=== PATIENT | female | born 1980 | race Caucasian/White ===

== ENCOUNTER 2016-10-22 15:16 | Emergency (ER) | payer OTHER ==
[~2016-10-22] VITALS: Ht 165.1 cm; Wt 135.4 kg
[~2016-10-22 15:16] MED LIST: CITA20TA11 PO; IBUP-1827 PO; LEVO150T5 PO; LORA1TAB PO; OXYB5TAB10 PO; OXYC5SOL11 PO
[2016-10-22 15:20] VITALS: BP 138/96; PULSE 124; RESP 20; O2SAT 96
--- NOTE | 2016-10-22 15:34 | ED.REPORT ---
HPI-Chest Pain Under 40 Date of Service Oct 22, 2016 ED Provider: Artis Villarreal MD A 36 year old female with a medical history including GERD, anxiety, bipolar disorder, depression, and multinodular goiter s/p thyroidectomy (06/2016) on thyroid replacement presents to the ED with tachycardia (120-140) onset yesterday. The patient also report shortness of breath, lightheadedness, and intermittent chest pain described as "twinges." She denies fever, nausea, or other symptoms. The patient has had similar symptoms in the past associated with a left bundle branch block. She denies any recent long plane rides or hormone replacement therapies. The patient was started on antibiotics yesterday for a UTI and her thyroid replacement dosage is currently being optimized, with the most recent change last month. Nursing Notes Stated Complaint: SOB, HEART RATE Chief Complaint: Dysrhythmia/Cardiac Nursing Notes Reviewed: Yes Allergies: Coded Allergies: aripiprazole (Verified Adverse Reaction, Severe, DRY MOUTH, 06/27/16) ciprofloxacin HCl (Verified Adverse Reaction, Severe, GENERALIZED PAIN, ) hydromorphone (Verified Adverse Reaction, Severe, ITCHING, 06/27/16) Scheduled Atenolol (Atenolol) 25 Mg Tablet 25 MG PO DAILY Citalopram (Citalopram) 20 Mg Tablet 40 MG PO DAILY Levothyroxine (Levothyroxine) 150 Mcg Tablet 150 MCG PO DAILYAC Oxybutynin Chloride (Oxybutynin Chloride) 5 Mg Tablet 5 MG PO BID Scheduled PRN Ibuprofen (Ibuprofen) 600 Mg Tablet 600 MG PO QID PRN PRN For Pain Lorazepam (Lorazepam) 1 Mg Tablet 1 MG PO BID PRN PRN For Anxiety or Agitation oxyCODONE (oxyCODONE) 5 Mg/5 Ml Solution 5-10 MG PO Q4H PRN PRN For Severe Pain General Time Seen by MD: 15:31 Chief Complaint Other (Tachycardia) Hx Obtained From: Patient Arrived By: Walk-in Onset Occurred: Yesterday Symptom Duration: Since onset Location: : Chest left: Chest right Quality: Painful Severity: Current: Moderate (Intermittent) Severity: Maximum: Moderate Associated with: Reports: Shortness of breath, Denies: Fever, Nausea Pertinent Negative: Relieved by nothing Context Related History: Reports: Anxiety disorder, GERD Recent Healthcare: No recent doctor visit Similar Sx Previous: Yes Past Medical History Past Medical History Notes: PCP: Ascencion Mcnamara Past Medical History Cholelithiasis TMJ treated with braces GERD Nephrolithiasis Frequent UTIs Multinodular goiter Anxiety Bipolar disorder type 2 Depression On thyroid replacement Past Surgical History Bone spur removal in shoulder Total thyroidectomy Reports: , Cholecystectomy Reports: Tubal ligation Family History Reports: Coronary artery disease Smoking History Current Every Day Smoker Social History Alcohol Use: Denies alcohol use Other Social History: Good social support, , Lives with children, Local resident Ambulatory Status Independent Review of Systems Review of Systems Note: + Tachycardia (120-140) Her last normal menstrual period was three weeks ago. Constitutional: Denies: Fever Respiratory: Reports: Shortness of breath, Denies: Non-productive cough Cardiovascular: Reports: Chest pain (Intermittent) GI: Denies: Nausea, Vomiting Neurologic: Reports: Lightheaded Complete sys rev & neg: except as marked. Physical Exam Initial Vital Signs Vital Signs (First) Date Time Temp Pulse Resp B/P Pulse Ox O2 Delivery O2 Flow Rate FiO2 10/22/16 15:20 36.0 124 20 138/96 96 Room Air Initial VS: Reviewed Head / Eyes: Atraumatic, Normocephalic Skin: Warm, Dry Neurologic: Alert, Oriented Psychiatric: Mood/affect normal, Behavior normal, Normal thought content General/Constitutional: Awake, Alert Respiratory / Chest: Breath sounds NL, Breath sounds = bilat, No respiratory distress Cardiovascular: Regular rhythm, Heart sounds NL, No gallop, No murmurs, No rubs Heart Rate / Rhythm: Positive: Tachycardia (Borderline) Interpretation & Diagnostics URINE TEST: Negative Lab Results Interpretation Result Diagram: 10/22/16 1547 10/22/16 1547 Test 10/22/16 15:47 10/22/16 17:50 White Blood Count 9.3th/mm3 (3.8-10.1) Red Blood Count 4.44mil/mm3 (3.90-5.20) Hemoglobin 14.0g/dL (12.0-15.6) Hematocrit 40.3% (35.0-46.0) Mean Corpuscular Volume 90.8fL (81-100) Mean Corpuscular Hemoglobin 31.5pg (27.0-35.0) Mean Corpuscular Hemoglobin Concent 34.7% (32.0-37.0) Red Cell Distribution Width 12.3% (12.3-15.4) Platelet Count 305bil/L (150-400) Neutrophils (%) (Auto) 71.1% (40-74) Lymphocytes (%) (Auto) 22.2% (14-46) Monocytes (%) (Auto) 4.8% (4-12) Eosinophils (%) (Auto) 1.4% (0-5) Basophils (%) (Auto) 0.3% (0-3) D-Dimer 0.6mg/L (<0.50) Sodium Level 139mEq/L (134-144) Potassium Level 3.8mEq/L (3.5-5.2) Chloride Level 103mEq/L (97-108) Carbon Dioxide Level 19mmol/L (18-29) Blood Urea Nitrogen 11mg/dL (6-20) Creatinine 0.85mg/dL (0.57-1.00) Estimat Glomerular Filtration Rate 108mL/min (>59) Glucose Level 112mg/dL (60-99) Calcium Level 8.6mg/dL (8.5-10.1) Magnesium Level 1.9mg/dL (1.6-2.6) Total Bilirubin 0.3mg/dL (0.0-1.2) Aspartate Amino Transf (AST/SGOT) 12U/L (0-50) Alanine Aminotransferase (ALT/SGPT) 10U/L (0-32) Alkaline Phosphatase 76U/L (25-150) Troponin T < 0.010ug/L (0.0-0.011) Pro-B-Type Natriuretic Peptide 53.56pg/mL (0-130) Total Protein 7.0g/dL (6.4-8.4) Albumin 4.4g/dL (3.4-5.0) Thyroid Stimulating Hormone (TSH) 12.830uIU/mL (0.450-4.500) Hold Flowers Top Tube Received (Received) Hold Urine Received (Received) ECG Interpretation ECG Interpretation: Sinus tachycardia rate 112 LBBB No change from 06/05/2016 with the exception of rate Time: 15:37 Interpreted by: ED physician X-Ray Chest Interpretation Chest Xray Interpretation: IMPRESSION: No acute cardiopulmonary disease. Dictated by: Ryan Bonilla M.D. on 10/22/2016 at 16:38 View: Portable, 1 view Interpretation / Wet Read by: Interpret - Radiologist Re-Eval/Medical Decision Med Decision/Clinical Course Patient here with complaint of palpitations and rapid heart rate. Does have some chest pain accompanying that. He did not present all day. Initial troponin is negative, she has an underlying left bundle branch block which is unchanged. She is known to have some mild sinus tachycardia presumably because of her palpitations. No no fever, does not appear to be acutely infected. Her d-dimer of 0.6 is completely unimpressive, has had similar symptoms and a negative CT angiogram in the recent past will not repeat that. Tachycardia resolved spontaneously prior to discharge. The patient is interested in a medication to slow her heart rate. We will try atenolol. Source of Hx: Old records Re-Evaluation/Progress : Time of Eval: 18:32 Patient Status: Condition improved Re-Evaluation/Progress Note: Discussed with patient x-ray and lab results, diagnosis, and plan for discharge. Follow-up and return to the ER instructions given. Patient agrees with plan for care and all questions were addressed. Counseled Regarding: Diagnosis, Lab results, Need for follow-up, When/why to return to ED Discharge & Departure Primary Impression: Sinus tachycardia Disposition: Home Discharge Condition All VS Reviewed: Yes Condition: Improved Patient Instructions: Palpitations (ED) Additional Instructions: Ed evaluation today included interview, exam and labs, ECG and chest x-ray as well as review of prior records. No serious cause for rapid heart rate is found. We will start atenolol 25mg daily to help slow heart rate. Be careful going from lying to standing while taking this medication. Stop if it makes you feel faint or if your heart rate is less than 50. Return to ED for chest pain or fainting. Follow up with primary care edgard. continue other home medications. Referrals: Ascencion Mcnamara MD (PCP) Scribe Attestation Portions of this note were transcribed by Angela Beth. I, Dr. Villarreal, personally performed the history, physical exam, and medical decision-making; I reviewed and confirmed the accuracy of the information in the transcribed note. Signed by: Caden Giordano, 10/22/2016, 20:15 copies to: Ascencion Mcnamara MD, Donald L MD Oct 22, 2016 15:34 ANGELA BETH Oct 22, 2016 15:38
[2016-10-22 15:55] VITALS: BP 123/79; PULSE 94; RESP 12; O2SAT 98
[2016-10-22 15:59] LABS: BASOPHILS % (AUTO) 0.3 % (0-3); EOSINOPHILS % (AUTO) 1.4 % (0-5); MONOCYTES % (AUTO) 4.8 % (4-12); Mean Corpuscular Hemoglobin 31.5 pg (27.0-35.0); Mean Corpuscular Volume 90.8 fL (81-100); NEUTROPHILS % (AUTO) 71.1 % (40-74); Platelet Count 305 bil/L (150-400)
[2016-10-22 16:40] LABS: TROPONIN T < 0.010 ug/L (0.0-0.011)
--- NOTE | 2016-10-22 16:40 | DRSVH ---
PROCEDURE: X-RAY CHEST ONE VIEW, PORTABLE ([id number]) INDICATIONS: dyspnea and tachycardia TECHNIQUE: One view of the chest was acquired. COMPARISON: [facility], CR, XR CHEST 1VW (PORTABLE), 06/03/2016, 13:50. FINDINGS: Surgical changes and devices: None. Lungs and pleura: No pleural effusions or pneumothorax. Lungs are clear. Mediastinum: Mediastinal contours appear normal. Heart size is normal. Bones and chest wall: No suspicious bony lesions. Overlying soft tissues appear unremarkable. IMPRESSION: No acute cardiopulmonary disease. Dictated by: Ryan Bonilla M.D. on 10/22/2016 at 16:38 Approved by: Ryan Bonilla M.D. on 10/22/2016 at 16:38
[2016-10-22 16:49] VITALS: BP 126/91; PULSE 108; RESP 17; O2SAT 98
[2016-10-22 16:52] LABS: Magnesium 1.9 mg/dL (1.6-2.6)
[2016-10-22 17:56] VITALS: BP 115/89; PULSE 88; RESP 15; O2SAT 99
[2016-10-22] MEDS ORDERED: ATEN25TA PO (18:49)
[2016-10-22 19:11] VITALS: BP 107/76; PULSE 85; RESP 20; O2SAT 98
== END 2016-10-22 19:12 | disposition home or self-care (01) ==
LOC: SED 15:16
DX: R00.0 Tachycardia, unspecified (principal); R06.02 Shortness of breath; R42 Dizziness and giddiness; R07.89 Other chest pain; I44.7 Left bundle-branch block, unspecified; K21.9 Gastro-esophageal reflux disease without esophagitis; F41.9 Anxiety disorder, unspecified; F31.9 Bipolar disorder, unspecified; F17.200 Nicotine dependence, unspecified, uncomplicated; Z86.39 Personal history of other endocrine, nutritional and metabolic disease; Z90.89 Acquired absence of other organs; Z87.440 Personal history of urinary (tract) infections; Z79.890 Hormone replacement therapy; Z88.8 Allergy status to other drugs, medicaments and biological substances; Z88.1 Allergy status to other antibiotic agents; Z88.5 Allergy status to narcotic agent

== ENCOUNTER 2016-11-18 12:29 | Emergency (ER) | payer OTHER ==
[~2016-11-18] VITALS: Ht 165.1 cm; Wt 132.7 kg
[~2016-11-18 12:29] MED LIST changes: +ATEN25TA PO
[2016-11-18 12:32] VITALS: BP 158/96; PULSE 64; RESP 15; O2SAT 97
--- NOTE | 2016-11-18 13:01 | ED.REPORT ---
HPI-General Illness Date of Service Nov 18, 2016 ED Provider: Lior Herrera MD 36 year old female with a history of anxiety, GERD, and thyroidectomy presents to the ER accompanied by her mother complaining of three days of constant palpitations. She states that it feels as though her "heart is going to beat out of her throat". Associated symptoms include SOB, chronic fatigue since thyroid removal in June 2016, left shoulder/arm pain and "heaviness", ear ringing, and sore throat. Patient denies chest pain, lower extremity swelling, hemoptysis, headache, and any recent surgeries or immobilization. Nursing Notes Stated Complaint: HEAVINESS IN ARM/RAPID HEART RATE Chief Complaint: General Complaint Nursing Notes Reviewed: Yes Allergies: Coded Allergies: aripiprazole (Verified Adverse Reaction, Severe, DRY MOUTH, 11/18/16) ciprofloxacin HCl (Verified Adverse Reaction, Severe, GENERALIZED PAIN, ) hydromorphone (Verified Adverse Reaction, Severe, ITCHING, 11/18/16) Scheduled Atenolol (Atenolol) 25 Mg Tablet 25 MG PO DAILY Citalopram (Citalopram) 20 Mg Tablet 40 MG PO DAILY Levothyroxine (Levothyroxine) 150 Mcg Tablet 150 MCG PO DAILYAC Oxybutynin Chloride (Oxybutynin Chloride) 5 Mg Tablet 5 MG PO BID Scheduled PRN Ibuprofen (Ibuprofen) 600 Mg Tablet 600 MG PO QID PRN PRN For Pain Lorazepam (Lorazepam) 1 Mg Tablet 1 MG PO BID PRN PRN For Anxiety or Agitation oxyCODONE (oxyCODONE) 5 Mg/5 Ml Solution 5-10 MG PO Q4H PRN PRN For Severe Pain General Time Seen by MD: 13:00 Chief Complaint Other (Palpitations) Hx Obtained From: Patient Arrived By: Walk-in Sudden in Onset?: No Onset Occurred: 3 days ago Symptom Duration: Since onset Associated with: Reports: Shortness of breath, Denies: Chest pain, Headache Similar Sx Previous: No Past Medical History Past Medical History Notes: PCP: Ascencion Mcnamara Past Medical History Cholelithiasis TMJ treated with braces GERD Nephrolithiasis Frequent UTIs Multinodular goiter Anxiety Bipolar disorder type 2 Depression On thyroid replacement Past Surgical History Bone spur removal in shoulder Total thyroidectomy Reports: , Cholecystectomy Reports: Tubal ligation Family History Reports: Coronary artery disease Smoking History Current Every Day Smoker Social History Alcohol Use: Denies alcohol use Other Social History: Good social support, , Lives with children, Local resident Ambulatory Status Independent Review of Systems Full Review of Systems Ears / Nose / Throat: Reports: Ear ringing bilateral, Sore throat Respiratory: Reports: Shortness of breath, Denies: Hemoptysis, Non-productive cough Cardiovascular: Reports: Palpitations, Denies: Chest pain GI: Denies: Vomiting Musculoskeletal: Reports: Extremity pain (Left Arm), Joint pain (Left Shoulder) , Denies: Extremity swelling, Neck pain Neurologic: Reports: Focal weakness (Left Arm "Heaviness"), Denies: Headache Complete sys rev & neg: except as marked. Physical Exam Vital Signs Vital Signs Date Time Temp Pulse Resp B/P Pulse Ox O2 Delivery O2 Flow Rate FiO2 11/18/16 16:58 59 16 145/74 99 Room Air 11/18/16 15:10 48 13 155/74 100 Room Air 11/18/16 12:32 36.8 64 15 158/96 97 Initial VS: Reviewed Head / Eyes: Atraumatic, Normocephalic Neck: Supple, Non-tender, Full range of motion Abdomen / GI: Soft, Non-tender, No guarding, No rebound, No distention Extremities: Vascular intact, Neuro intact, No swelling, No tenderness Skin: Warm, Dry, No cyanosis Neurologic: Alert, Oriented, Nonfocal Psychiatric: Mood/affect normal, Behavior normal, Normal thought content Respiratory / Chest: Breath sounds NL, No respiratory distress, No rales, No rhonchi, No wheezing Cardiovascular: Heart rate NL, Regular rhythm, Heart sounds NL, Cap refill not delayed, Peripheral circulation NL No lower extremity edema. Neurologic: Oriented X3, Speech NL, No motor deficits, No sensory deficits, CN II - XII intact Interpretation & Diagnostics Lab Results Interpretation Result Diagram: 11/18/16 1317 11/18/16 1317 Test 11/18/16 13:17 11/18/16 15:41 White Blood Count 5.4th/mm3 (3.8-10.1) Red Blood Count 4.32mil/mm3 (3.90-5.20) Hemoglobin 13.6g/dL (12.0-15.6) Hematocrit 39.9% (35.0-46.0) Mean Corpuscular Volume 92.4fL (81-100) Mean Corpuscular Hemoglobin 31.5pg (27.0-35.0) Mean Corpuscular Hemoglobin Concent 34.1% (32.0-37.0) Red Cell Distribution Width 12.1% (12.3-15.4) Platelet Count 246bil/L (150-400) Neutrophils (%) (Auto) 57.6% (40-74) Lymphocytes (%) (Auto) 32.3% (14-46) Monocytes (%) (Auto) 7.1% (4-12) Eosinophils (%) (Auto) 2.2% (0-5) Basophils (%) (Auto) 0.6% (0-3) Sodium Level 139mEq/L (134-144) Potassium Level 3.9mEq/L (3.5-5.2) Chloride Level 103mEq/L (97-108) Carbon Dioxide Level 21mmol/L (18-29) Blood Urea Nitrogen 8mg/dL (6-20) Creatinine 0.78mg/dL (0.57-1.00) Estimat Glomerular Filtration Rate 119mL/min (>59) Glucose Level 90mg/dL (60-99) Calcium Level 9.2mg/dL (8.5-10.1) Magnesium Level 1.9mg/dL (1.6-2.6) Total Bilirubin 0.5mg/dL (0.0-1.2) Aspartate Amino Transf (AST/SGOT) 15U/L (0-50) Alanine Aminotransferase (ALT/SGPT) 19U/L (0-32) Alkaline Phosphatase 62U/L (25-150) Troponin T < 0.010ug/L (0.0-0.011) Total Protein 6.8g/dL (6.4-8.4) Albumin 4.3g/dL (3.4-5.0) Thyroid Stimulating Hormone (TSH) 1.790uIU/mL (0.450-4.500) Hold Flowers Top Tube Received (Received) Hold Urine Received (Received) ECG Interpretation ECG Interpretation: Sinus rhythm, rate 62 LBBB unchanged from prior MO 166 QTc 486 Time: 13:13 Interpreted by: ED physician X-Ray Chest Interpretation Chest Xray Interpretation: IMPRESSION: 1. No acute cardiopulmonary disease. Dictated by: Arnoldo Regan M.D. on 11/18/2016 at 13:43 Approved by: Arnoldo Regan M.D. on 11/18/2016 at 13:44 View: Portable, 1 view Interpretation / Wet Read by: Interpret - Radiologist Re-Eval/Medical Decision Med Decision/Clinical Course 36-year-old female history of thyroidectomy presenting complaining of palpitations for several days. She was started on atenolol for sinus tachycardia 1 month ago. Denies any chest pain or shortness of breath. EKG shows sinus bradycardia with normal MO prolonged QTC. Consulted cardiology Dr. Murguia who recommended and agreed with plan to discontinue the atenolol and plan to follow up with cardiology as scheduled next week for possible Holter monitor. Patient stable for discharge home with return precautions. Source of Hx: Old records Time of Eval: 15:08 Re-Evaluation/Progress Note: is now present at bedside. Discussed lab and imaging results and plan to discharge. Patient is amenable to the plan. Return precautions given. All other questions addressed. Time of Eval: 16:04 Re-Evaluation/Progress Note: Dr. Murguia, Cardiology, is now present and evaluating the patient. Recommends stopping Atenolol and follow-up with Dr. Craft, Cardiology, as planned. Consultation : Referral / Consult Name: Daniela Murguia MD Consulted With: Cardiology Call Returned at: 15:15 Hand Mounter: Will see patient Counseled Regarding: Diagnosis, Lab results, Need for follow-up, When/why to return to ED Discharge & Departure Primary Impression: Heart palpitations Disposition: Home Discharge Condition All VS Reviewed: Yes Condition: Stable Patient Instructions: Chest Pain (DC), Palpitations (DC) Additional Instructions: Your workup today was reassuring. I do not believe that there is any dangerous cause for your symptoms at this time. Stop taking your Atenolol. Go to your appointment with Dr. Craft, Cardiology, as planned. You will have a Holter monitor scheduled for you. Return to the ER if you develop worsening symptoms, chest pain, shortness of breath, radiation of pain to your neck/shoulders/arms, nausea, vomiting, profuse sweating, lower extremity pain/swelling, fever, chills, or any other concerning symptoms. Referrals: Ascencion Mcnamara MD (PCP) Scribe Attestation Portions of this note were transcribed by Uriel Reyna. I, Dr. Herrera, personally performed the history, physical exam and medical decision-making; I reviewed and confirmed the accuracy of the information in the transcribed note. Signed by: Caden Cool, 11/18/2016 at 16:16 copies to: Ascencion Mcnamara MD Risk Factors PERC Rule PERC Result: All PERC criteria "No" Lior Herrera MD Nov 18, 2016 13:01 URIEL REYNA Nov 18, 2016 13:12
[2016-11-18 13:36] LABS: BASOPHILS % (AUTO) 0.6 % (0-3); EOSINOPHILS % (AUTO) 2.2 % (0-5); MONOCYTES % (AUTO) 7.1 % (4-12); Mean Corpuscular Hemoglobin 31.5 pg (27.0-35.0); Mean Corpuscular Volume 92.4 fL (81-100); NEUTROPHILS % (AUTO) 57.6 % (40-74); Platelet Count 246 bil/L (150-400)
--- NOTE | 2016-11-18 13:46 | DRSVH ---
PROCEDURE: X-RAY CHEST ONE VIEW, PORTABLE ([id number]) INDICATIONS: chest pain TECHNIQUE: One view of the chest was acquired. COMPARISON: [facility], CR, XR CHEST 1VW (PORTABLE), 10/22/2016, 16:22. FINDINGS: Surgical changes and devices: A few surgical clips are redemonstrated at the level of the thoracic in let. Lungs and pleura: No pleural effusions or pneumothorax. Lungs are clear. Mediastinum: Mediastinal contours appear normal. Heart size is normal. Bones and chest wall: No suspicious bony lesions. Overlying soft tissues appear unremarkable. IMPRESSION: 1. No acute cardiopulmonary disease. Dictated by: Arnoldo Regan M.D. on 11/18/2016 at 13:43 Approved by: Arnoldo Regan M.D. on 11/18/2016 at 13:44
[2016-11-18 14:10] LABS: TROPONIN T < 0.010 ug/L (0.0-0.011)
[2016-11-18 14:19] LABS: Magnesium 1.9 mg/dL (1.6-2.6)
[2016-11-18 15:10] VITALS: BP 155/74; PULSE 48; RESP 13; O2SAT 100
[2016-11-18 16:58] VITALS: BP 145/74; PULSE 59; RESP 16; O2SAT 99
== END 2016-11-18 16:10 | disposition home or self-care (01) ==
LOC: SED 12:29
DX: R00.2 Palpitations (principal); R06.02 Shortness of breath; K21.9 Gastro-esophageal reflux disease without esophagitis; F17.200 Nicotine dependence, unspecified, uncomplicated; Z88.1 Allergy status to other antibiotic agents; Z88.5 Allergy status to narcotic agent; Z88.8 Allergy status to other drugs, medicaments and biological substances

== ENCOUNTER 2016-12-02 21:44 | Emergency (ER) | payer OTHER ==
[~2016-12-02] VITALS: Ht 165.1 cm; Wt 132.7 kg
[2016-12-02 21:49] VITALS: BP 146/94; PULSE 91; RESP 18; O2SAT 97
--- NOTE | 2016-12-03 01:01 | ED.REPORT ---
HPI-Extremity Problem Lower Date of Service December 03, 2016 ED Provider: Taurus Fang MD A 36 year old female with a medical history including left bundle branch block, bipolar disorder, and depression on thyroid replacement presents to the ED with a right ankle injury onset today. The patient fell with her foot caught between furniture parts and then her foot was subsequently stepped on while putting a bed together. She now reports ankle pain and swelling. The patient denies additional injury/trauma or other symptoms. Nursing Notes Stated Complaint: HURT ANKLE Chief Complaint: Extremity Trauma Nursing Notes Reviewed: Yes Allergies: Coded Allergies: aripiprazole (Verified Adverse Reaction, Severe, DRY MOUTH, 11/18/16) ciprofloxacin HCl (Verified Adverse Reaction, Severe, GENERALIZED PAIN, ) hydromorphone (Verified Adverse Reaction, Severe, ITCHING, 11/18/16) Scheduled Atenolol (Atenolol) 25 Mg Tablet 25 MG PO DAILY Citalopram (Citalopram) 20 Mg Tablet 40 MG PO DAILY Levothyroxine (Levothyroxine) 150 Mcg Tablet 150 MCG PO DAILYAC Oxybutynin Chloride (Oxybutynin Chloride) 5 Mg Tablet 5 MG PO BID Scheduled PRN Ibuprofen (Ibuprofen) 600 Mg Tablet 600 MG PO QID PRN PRN For Pain Lorazepam (Lorazepam) 1 Mg Tablet 1 MG PO BID PRN PRN For Anxiety or Agitation oxyCODONE (oxyCODONE) 5 Mg/5 Ml Solution 5-10 MG PO Q4H PRN PRN For Severe Pain General Time Seen by MD: 00:59 Chief Complaint Ankle injury right Hx Obtained From: Patient Arrived By: Walk-in Onset Occurred: 5 - 8 hours ago Symptom Duration: Since onset Location: : Ankle right Quality: Painful Severity: Current: Moderate Severity: Maximum: Moderate Pertinent Negative: Relieved by nothing Immunizations: Tetanus up to date Recent Healthcare: No recent doctor visit Past Medical History Past Medical History Notes: PCP: Ascencion Mcnamara Past Medical History Cholelithiasis TMJ treated with braces GERD Nephrolithiasis Frequent UTIs Multinodular goiter Anxiety Bipolar disorder type 2 Depression On thyroid replacement Left bundle branch block Past Surgical History Bone spur removal in shoulder Total thyroidectomy Reports: , Cholecystectomy Reports: Tubal ligation Family History Reports: Coronary artery disease Smoking History Current Every Day Smoker Social History Alcohol Use: Denies alcohol use Other Social History: Good social support, , Lives with children, Local resident Ambulatory Status Independent Review of Systems Constitutional: Denies: Fever Musculoskeletal: Reports: Joint pain (Right ankle), Joint swelling (Right ankle ) Complete sys rev & neg: except as marked. Respiratory: Denies: Non-productive cough, Shortness of breath GI: Denies: Diarrhea, Vomiting Physical Exam Physical Exam Notes: Initial Vital Signs Vital Signs (First) Date Time Temp Pulse Resp B/P Pulse Ox O2 Delivery O2 Flow Rate FiO2 12/02/16 21:49 36.0 91 18 146/94 97 Room Air Initial VS: Reviewed, Vital signs abnormal Head / Eyes: Atraumatic, Normocephalic ENT: Conjunctiva normal, No scleral icterus Neck: Supple, Full range of motion Skin: Warm, Dry Neurologic: Alert, Oriented Psychiatric: Mood/affect normal, Behavior normal Ankle / Foot: Neurologic intact, Vascular intact Right Ankle: Positive: Ecchymosis present (Bilateral), Joint effusion present, Swelling present..., Tenderness present... General/Constitutional: Awake, Alert Interpretation & Diagnostics CT ANKLE - RIGHT IMPRESSION: No CT evidence of acute fracture or dislocation of the right ankle. Report transmitted to ED by radiologist Olman Robledo M.D. at 12/03/2016 - 1: 51:01 AM PDT X-Ray Interpretation Xray Interpretation: Cortical disruption anteriorly on x-ray, consistent with tenderness and bruising on physical exam Heel bone spur present Study Performed: 3 View X-Ray Ordered: Ankle right Interpretation / Wet Read by: Wet read ED physician Re-Eval/Medical Decision Med Decision/Clinical Course 36-year-old female who twisted her ankle as above. It is very tender with ecchymosis surrounding all sides. She is unable to bear weight. The initial x- ray shows some degenerative changes but no definite fracture. CT scan was obtained which also showed no fractures. She was fitted with a walking boot and crutches. She was given a prepack of pain medication. Risk of medication discussed. She will follow up with her primary doctor for further evaluation and treatment Source of Hx: Old records Re-Evaluation/Progress : Time of Eval: 02:10 Patient Status: Condition improved Re-Evaluation/Progress Note: Discussed with patient x-ray and CT results, diagnosis, and plan for discharge. Follow-up and return to the ER instructions given. Patient agrees with plan for care and all questions were addressed. Counseled Regarding: Diagnosis, Need for follow-up, When/why to return to ED Discharge & Departure Impression: Primary Impression: Ankle sprain Encounter type: initial encounter Laterality: right Disposition: Home Discharge Condition All VS Reviewed: Yes Condition: Improved Additional Instructions: Your CT did not indicate a fracture. Wear the boot and use crutches for ambulation. Gradually begin to bear weight as the pain diminishes. Tylenol and/or ibuprofen as needed for pain. Use oxycodone/APAP 5/325, one or 2 pills 4 times a day as needed for severe pain. Follow-up with your regular doctor in 3-5 days. Return to the ER with any new or worsening symptoms. Referrals: Ascencion Mcnamara MD (PCP) Scribe Attestation Portions of this note were transcribed by Angela Beth. I, Dr. Fang, personally performed the history, physical exam, and medical decision-making; I reviewed and confirmed the accuracy of the information in the transcribed note. Signed by: Caden Giordano, 12/03/2016, 04:15 copies to: Ascencion Mcnamara MD, Howard L MD December 03, 2016 01:01 ANGELA BETH December 03, 2016 01:12
[2016-12-03] MEDS ORDERED: oxyCODONE-Acetamin 5-325 mg Tablet PO ONE (01:10)
[2016-12-03] MEDS ORDERED: _oxyCODONE/APAP 5-325 mg Tablet PO PRN (02:10)
[2016-12-03 02:56] VITALS: BP 136/64; PULSE 84; RESP 16; O2SAT 98
--- NOTE | 2016-12-03 08:18 | DRSVH ---
PROCEDURE: X-RAY RIGHT ANKLE, MINIMUM THREE VIEWS ([id number]) INDICATIONS: FALL TECHNIQUE: 4 views of the ankle were acquired. COMPARISON: [facility], , ANKLE MIN 3VW (RT), 09/18/2014, 15:40. FINDINGS: Bones: No fractures or dislocations. Ankle mortise is normally aligned. No suspicious bony lesions . Plantar and posterior calcaneal spurring. Tibiotalar degenerative spurring Soft tissues: No tibiotalar joint effusion. Achilles tendon appears normal. Medial soft tissue swel ling IMPRESSION: No fracture. Posterior and plantar calcaneal spurring Medial soft tissue swelling Dictated by: López Sheppard M.D. on 12/03/2016 at 8:06 Approved by: López Sheppard M.D. on 12/03/2016 at 8:17
--- NOTE | 2016-12-03 09:32 | DRSVH ---
PROCEDURE: CT ANKLE RIGHT W/O CONTRAST ([id number]) INDICATIONS: significant PE findings, ? fx on Xray TECHNIQUE: Noncontrast 1-1.5 mm axial sections acquired from above the tibiotalar joint to the bottom of the latisha caneus, with coronal and sagittal reformats. COMPARISON: [facility], CR, XR ANKLE 3VW RT, 12/02/2016, 22:50. FINDINGS: Image quality: Excellent. Bones: No fracture or dislocation. Ankle mortise is normally aligned. Mild anterior tibiotalar osteoa rthritic degenerative changes are noted. Small 4 mm diameter ossification is noted in the anterior ti biotalar joint. Small calcaneal bone spur is noted. Soft tissues: Medial soft tissue swelling is noted ligamentous injury cannot be excluded. No definite soft tissue fluid collections identified. IMPRESSION: 1. No fracture. No acute osseous lesion. If symptoms and/or clinical suspicion for pathology persists , further assessment with MRI may be helpful for further assessment. 2. Soft tissue swelling. Ligamentous injury cannot be excluded. Dictated by: Gwendolyn Willoughby MD, PhD on 12/03/2016 at 9:26 Approved by: Gwendolyn Willoughby MD, PhD on 12/03/2016 at 9:30
== END 2016-12-03 02:59 | disposition home or self-care (01) ==
LOC: SED 21:44
DX: S93.401A Sprain of unspecified ligament of right ankle, initial encounter (principal); X50.1XXA Overexertion from prolonged static or awkward postures, initial encounter; Y93.89 Activity, other specified; Y92.019 Unspecified place in single-family (private) house as the place of occurrence of the external cause; Y99.8 Other external cause status; K21.9 Gastro-esophageal reflux disease without esophagitis; F31.9 Bipolar disorder, unspecified; F17.200 Nicotine dependence, unspecified, uncomplicated; Z88.1 Allergy status to other antibiotic agents; Z88.5 Allergy status to narcotic agent; Z88.8 Allergy status to other drugs, medicaments and biological substances

== ENCOUNTER 2017-01-16 17:42 | Inpatient (IN) | payer OTHER ==
[~2017-01-16] VITALS: Ht 165.1 cm; Wt 132.0 kg
[2017-01-16 17:45] VITALS: BP 148/77; PULSE 108; RESP 18; O2SAT 97
--- NOTE | 2017-01-16 17:57 | ED.REPORT ---
HPI-General Illness Date of Service Jan 16, 2017 ED Provider: Roberto Peña MD A 36 year old female with a history of anxiety, depression, bipolar disorder, self-harm and suicidal ideation presents to the ED due to anxiety and suicidal ideation. The pt has been struggling with severe depression for two weeks, and feels overwhelmed by this. The pt states that she is "tired of feeling crazy" and "faking that she is happy," and is unable to "shut her brain off." She has not cut herself recently, but hit her right leg with a hammer yesterday and today as a release. She has been considering suicidal actions, but does not have a specific plan. The pt denies homicidal ideation and visual or auditory hallucinations, as well as chest pain, shortness of breath, abdominal pain or palpitations. Nursing Notes Stated Complaint: PSYCHIATRIC Chief Complaint: Psychiatric Complaint Nursing Notes Reviewed: Yes Allergies: Coded Allergies: aripiprazole (Verified Adverse Reaction, Severe, DRY MOUTH, 01/16/17) ciprofloxacin HCl (Verified Adverse Reaction, Severe, GENERALIZED PAIN, ) hydromorphone (Verified Adverse Reaction, Severe, ITCHING, 01/16/17) Scheduled Atenolol (Atenolol) 25 Mg Tablet 25 MG PO DAILY Citalopram (Citalopram) 20 Mg Tablet 40 MG PO DAILY Levothyroxine (Levothyroxine) 150 Mcg Tablet 150 MCG PO DAILYAC Metoprolol Succinate ER (Metoprolol Succinate ER) 25 Mg Tab.er.24h 25 MG PO DAILY Olanzapine (Olanzapine) 2.5 Mg Tablet 2.5 MG PO HS Oxybutynin Chloride (Oxybutynin Chloride) 5 Mg Tablet 5 MG PO BID Pantoprazole DR (Pantoprazole DR) 40 Mg Tablet.dr 40 MG PO DAILY Scheduled PRN Clonazepam (Clonazepam) 1 Mg Tablet 1 MG PO PRN PRN PRN For Anxiety Ibuprofen (Ibuprofen) 600 Mg Tablet 600 MG PO QID PRN PRN For Pain Lorazepam (Lorazepam) 1 Mg Tablet 1 MG PO BID PRN PRN For Anxiety or Agitation General Time Seen by MD: 17:56 Chief Complaint Other (Suicidal ideation) Hx Obtained From: Patient, Other family... Arrived By: Walk-in Sudden in Onset?: No Onset Occurred: More than a week ago... Symptom Duration: Since onset Recent Healthcare: No recent hospitalization, Recent doctor visit Similar Sx Previous: Yes Past Medical History Past Medical History Notes: PCP: Ascencion Mcnamara Past Medical History Cholelithiasis TMJ treated with braces GERD Nephrolithiasis Frequent UTIs Multinodular goiter Anxiety Bipolar disorder type 2 Depression Self-harm Suicidal ideation On thyroid replacement Left bundle branch block Past Surgical History Bone spur removal in shoulder Total thyroidectomy Reports: , Cholecystectomy Reports: Tubal ligation Family History Reports: Coronary artery disease Smoking History Current Every Day Smoker Social History Alcohol Use: Denies alcohol use Other Social History: Good social support, , Lives with children, Local resident Ambulatory Status Independent Review of Systems Full Review of Systems Respiratory: Denies: Non-productive cough, Shortness of breath Cardiovascular: Denies: Chest pain, Palpitations GI: Denies: Abdominal pain Musculoskeletal: Denies: Back pain, Neck pain Skin: Denies Rash Psychiatric: Reports: Anxiety, Depression, Suicidal ideation, Denies: Hallucinations, auditory, Hallucinations, visual, Homicidal ideation Complete sys rev & neg: except as marked. Physical Exam Constitutional: Well-developed, well-nourished. Not diaphoretic. Head: Normocephalic and atraumatic. Mouth/Throat: Oropharynx is clear and moist. No oropharyngeal exudate. Eyes: EOM are normal. Pupils are equal, round, and reactive to light. Neck: Supple, no tracheal deviation. Cardiovascular: Normal rate, regular rhythm. Equal and intact distal pulses throughout. Pulmonary/Chest: Effort normal and breath sounds normal. No respiratory distress. Abdominal: Soft. No distension. There is no tenderness, rebound, or guarding. Bowel sounds present. Musculoskeletal: Range of motion grossly intact, moving all extremities. No edema or tenderness appreciated. Neurological: AOx3. Grossly nonfocal exam. Strength and sensation intact and equal to bilateral upper and lower extremities. Skin: Warm and dry, no rashes or pallor appreciated. Psychiatric: Suicidal ideation without plan. No homicidal ideation. No auditory or visual hallucinations. Vital Signs Vital Signs Date Time Temp Pulse Resp B/P Pulse Ox O2 Delivery O2 Flow Rate FiO2 01/16/17 22:45 86 16 146/93 97 Room Air 01/16/17 17:45 36.2 108 18 148/77 97 Room Air Initial VS: Reviewed Interpretation & Diagnostics Lab Results Interpretation Result Diagram: [id number] Test 01/16/17 18:10 01/16/17 20:20 Hold Urine Received (Received) White Blood Count 9.4th/mm3 (3.8-10.1) Red Blood Count 4.29mil/mm3 (3.90-5.20) Hemoglobin 13.7g/dL (12.0-15.6) Hematocrit 39.3% (35.0-46.0) Mean Corpuscular Volume 91.6fL (81-100) Mean Corpuscular Hemoglobin 31.9pg (27.0-35.0) Mean Corpuscular Hemoglobin Concent 34.9% (32.0-37.0) Red Cell Distribution Width 12.5% (12.3-15.4) Platelet Count 274bil/L (150-400) Neutrophils (%) (Auto) 67.3% (40-74) Lymphocytes (%) (Auto) 24.4% (14-46) Monocytes (%) (Auto) 5.7% (4-12) Eosinophils (%) (Auto) 2.0% (0-5) Basophils (%) (Auto) 0.4% (0-3) Sodium Level 139mEq/L (134-144) Potassium Level 3.6mEq/L (3.5-5.2) Chloride Level 103mEq/L (97-108) Carbon Dioxide Level 23mmol/L (18-29) Blood Urea Nitrogen 14mg/dL (6-20) Creatinine 0.79mg/dL (0.57-1.00) Estimat Glomerular Filtration Rate 117mL/min (>59) Glucose Level 122mg/dL (60-99) Calcium Level 9.4mg/dL (8.5-10.1) Total Bilirubin 0.5mg/dL (0.0-1.2) Aspartate Amino Transf (AST/SGOT) 10U/L (0-50) Alanine Aminotransferase (ALT/SGPT) 10U/L (0-32) Alkaline Phosphatase 77U/L (25-150) Total Protein 7.0g/dL (6.4-8.4) Albumin 4.0g/dL (3.4-5.0) Thyroid Stimulating Hormone (TSH) 6.470uIU/mL (0.450-4.500) Hold Flowers Top Tube Received (Received) Re-Eval/Medical Decision Med Decision/Clinical Course 36-year-old female presenting to the ED for evaluation of suicidal ideations. Laboratory studies here do not demonstrate any findings that would fully account for her current presentation. Plan as per below for admission to psychiatry for further management and evaluation. Patient agreeable to the plan as stated, no further questions. Source of Hx: Old records Time of Eval: 17:56 Re-Evaluation/Progress Note: Pt informed of the plan for admission during the initial interview. The pt understands and agrees with the plan. All questions are addressed at this time. Consultation : Call Returned at: 22:40 Note: Spoke to elementary school social worker regarding pt's case. Plan for admission is discussed. Counseled Regarding: Diagnosis, Lab results, Need for admission Discharge & Departure Primary Impression: Suicidal ideation Disposition: ADMITTED TO HOSPITAL Discharge Condition All VS Reviewed: Yes Condition: Stable Referrals: Ascencion Mcnamara MD (PCP) Rosaibfiona Attestation Portions of this note were transcribed by Kota Cotton. I, Dr. Peña personally performed the history, physical exam and medical decision-making; I reviewed and confirmed the accuracy of the information in the transcribed note. Signed by: Caden Jones, 01/16/2017 and 2861. copies to: Ascencion Mcnamara MD Risk-Psychiatric Illness Suicide Risk Stratification Suicide Risk Factors - Adult: : Prior psych admissionNo: Substance abuse RF Statements: Risk factors reviewed Roberto Peña MD Jan 16, 2017 17:57 KOTA COTTON Jan 16, 2017 19:15
[2017-01-16 20:30] LABS: BASOPHILS % (AUTO) 0.4 % (0-3); MONOCYTES % (AUTO) 5.7 % (4-12); Mean Corpuscular Hemoglobin 31.9 pg (27.0-35.0); Mean Corpuscular Volume 91.6 fL (81-100); NEUTROPHILS % (AUTO) 67.3 % (40-74); Platelet Count 274 bil/L (150-400)
[2017-01-16 22:45] VITALS: BP 146/93; PULSE 86; RESP 16; O2SAT 97
[2017-01-17 00:13] VITALS: BP 132/71; PULSE 91; RESP 18; O2SAT 98
[2017-01-17] MEDS ORDERED: Benzocaine-Menthol Lozenge 2/Pkg PO PRN (00:40)
[2017-01-17] MEDS ORDERED: Magnesium Hydroxide 10 mL Oral Concentration PO PRN (00:40)
[2017-01-17] MEDS ORDERED: Alum-Mag Hydrox-Simeth 30 mL Suspension PO PRN (00:40)
--- NOTE | 2017-01-17 01:52 | NUR ---
00:40 Nursing admission note: 36 year old female admitted voluntarily from [facility] ER. Patient BIB by family, with increasing depression and SI. Patient reports feeling overwhelmed at home, racing thoughts and has not been able to sleep much at night. Patient has 9 year old and twins age 2 and a half. 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 Patient recently starting hitting her leg with a hammer "to stop my brain" Patient has recently been contemplating OD on pills. Patient is cooperative with admission paperwork, contracts for safety. Patient briefly oriented to unit, reports she feels very tired, and went to bed shortly after arrival. Reassured patient of safety and instructed patient to request medication for sleep if necessary. Will continue to monitor and follow plan of care. Addendum: 01/17/17 at 0605 by CLAIRE HOLLAND RN 0600 Nursing note: sleep Patient appears to be sleeping ( snoring) on subsequent safety checks during the night
--- NOTE | 2017-01-17 03:14 | NUR ---
ADMIT/NOC OBS Pt arrived from ER at 0040. Signed all paperwork and was oriented to unit. She was pleasant and went right to bed and was asleep at 145. Observed Q15 as ordered.
[2017-01-17] MEDS ORDERED: METO25TA99 PO (12:14)
[2017-01-17] MEDS ORDERED: OLAN2.5T20 PO (12:14)
[2017-01-17] MEDS ORDERED: KLO1T PO (12:14)
[2017-01-17 12:19] VITALS: BP 132/88; PULSE 63; RESP 16
[2017-01-17] MEDS: LORazepam 1 mg Tablet PO PRN (12:29)
--- NOTE | 2017-01-17 13:23 | NUR ---
Observations 0700 to 1900 Pt affect and mood was friendly, content, depressed and a little sullen. Pt speech and eye contact was good. Pt attended meals in D.R. and ate 100% of breakfast and 100% of lunch. Pt ate snack. Pt attended community meeting and set a daily goal. Pt rated her mood 4/10, with 10 being the best. Pt was social with staff and select peers. Pt has been pleasant, polite and cooperative. Pt watched a little TV with peers. Pt was out in milieu most of the shift, reading her book, talking on the phone and socializing with select peers. Pt was observed every 15 minutes throughout the shift as ordered.
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
--- NOTE | 2017-01-17 14:51 | NUR ---
NURSING DAYS 7-7 S- "I don't know if I can not stop of thinking of hurting myself. I am just waiting until visiting hours" O- Patient cooperative with care, linear thinking, requesting anxiety medication, and appropriate with staff and other patients. Patient talked to mother on phone appeared to cordial conversation. A- 1mg Ativan given for anxiety, Motrin given for headache, both medications effective. Patient reassured of safe environment, and that she was doing well in dealing with situational crisis at home. P-Continue to provide safe environment, encourage family support, visits, and help plan stress management techniques.
[2017-01-17] MEDS ORDERED: PANT40TA3 PO (15:56)
[2017-01-17] MEDS: Pantoprazole 20 mg ER24 Tablet PO SCH (20:46)
--- NOTE | 2017-01-18 05:33 | NUR ---
Nursing Noc Pt noted to be pleasant and cooperative, engaged in unit activities, linear thinking and goal oriented. Taking medications as directed and using prn appropriately. Noted to be asleep at 2300 and remained asleep throughout the shift. Safety checks Q15 minute as directed. Continuing to monitor mood, behavior and emotional state. CP
[2017-01-18] MEDS: Pantoprazole 20 mg ER24 Tablet PO SCH ×2 (07:48→21:11)
[2017-01-18] MEDS: DULoxetine 30 mg DR Capsule PO SCH (07:48)
[2017-01-18] MEDS: MeTOProlol XL 25 mg ER24 Tablet PO SCH (07:49)
[2017-01-18 09:52] VITALS: BP 119/77; PULSE 67; RESP 17
--- NOTE | 2017-01-18 15:25 | PCM.PNPSY ---
Subjective Date of Service Jan 18, 2017 Subjective I spent 30 minutes both reviewing treatment plan with our clinical team, interviewing the patient and providing supportive/educational psychotherapy. I spent more than 50% of the time counseling the patient. I reviewed the treatment plan with the patient and discussed options available including the potential risks, benefits and side effects. She talked at length today about the different conflicts that she is having in her life. We discussed different strategies to deal with these and this seemed to bring her a significant sense of peace. Rani reports a slight improvement in mood stability. Staff reports that she has been isolating but is participating well in one-to-one sessions. She slept 7 hours and denies manic or psychotic symptoms review. She continues to report a marked dysphoria and a strong urge to self-harm. The intensity of her suicidal ideation is decreasing. She denies medication side effects. She was able to identify her medications and what they were used to treat. Current Medications Current Medications Atenolol 25 mg DAILY PO Last administered on 01/17/17 08:24; Admin Dose 25 MG; Start 01/17/17 at 08:30; Stop 01/17/17 at 12:53; Status DC Atenolol 25 mg DAILY PO Last administered on 01/18/17 07:49; Admin Dose 25 MG; Start 01/18/17 at 08:30 Citalopram Hydrobromide 40 mg DAILY PO Last administered on 01/17/17 08:23; Admin Dose 40 MG; Start 01/17/17 at 08:30; Stop 01/17/17 at 13:04; Status DC Clonazepam 0.5 mg BID PO Last administered on 01/18/17 07:48; Admin Dose 0.5 MG ; Start 01/17/17 at 12:50 Clonazepam 1 mg HS PO Last administered on 01/17/17 20:46; Admin Dose 1 MG; Start 01/17/17 at 21:00 Clonazepam 1 mg ONCE ONCE PO Last administered on 01/16/17 22:52; Admin Dose 1 MG; Start 01/16/17 at 22:45; Stop 01/16/17 at 22:46; Status DC Duloxetine HCl 30 mg DAILY PO Last administered on 01/18/17 07:48; Admin Dose 30 MG; Start 01/18/17 at 07:00 Hydroxyzine Pamoate 50 mg Q4H PRN PO Last administered on 01/18/17 09:06; Admin Dose 50 MG; Start 01/17/17 at 00:40 Ibuprofen 600 mg Q6H PRN PO Last administered on 01/17/17 12:30; Admin Dose 600 MG; Start 01/17/17 at 00:40 Levothyroxine Sodium 150 mcg DAILYAC PO Last administered on 01/17/17 07:14; Admin Dose 150 MCG; Start 01/17/17 at 07:30; Stop 01/17/17 at 12:55; Status DC Levothyroxine Sodium 200 mcg DAILYAC PO Last administered on 01/18/17 07:49; Admin Dose 200 MCG; Start 01/18/17 at 07:30 Lorazepam 1 mg Q4H PRN PO Last administered on 01/17/17 12:29; Admin Dose 1 MG ; Start 01/17/17 at 00:40 Metoprolol Succinate 25 mg DAILY PO Last administered on 01/18/17 07:49; Admin Dose 25 MG; Start 01/18/17 at 08:30 Nicotine 1 patch DAILY TOPICAL Last administered on 01/18/17 07:50; Admin Dose 1 PATCH; Start 01/17/17 at 08:30 Oxybutynin Chloride 5 mg BID PO Last administered on 01/17/17 08:20; Admin Dose 5 MG; Start 01/17/17 at 08:30; Stop 01/17/17 at 12:54; Status DC Oxybutynin Chloride 5 mg BID PO Last administered on 01/18/17 07:49; Admin Dose 5 MG; Start 01/17/17 at 20:30 Pantoprazole 20 mg BID PO Last administered on 01/18/17 07:48; Admin Dose 20 MG ; Start 01/17/17 at 20:30 Zolpidem Tartrate START WITH 5 MG AND MAY REP... HS PRN PO Last administered on 01/17/17 22:03; Admin Dose 5 MG; Start 01/17/17 at 00:40 Mental Status Exam Vital Signs Vital Signs Date Time Temp Pulse Resp B/P Pulse Ox O2 Delivery O2 Flow Rate FiO2 01/18/17 09:52 36.5 67 17 119/77 Appearance: Neat/well groomed Attitude: Pleasant, Cooperative Behavior: No unusual behavior Affect: Well Modulated/Appropriate Mood: Dysthymic Thought Process/Associations: Logical/Sequential, Goal Directed Speech Production: Normal Speech Rate: Normal Speech Articulation: Normal Thought Content: Negativistic Danger to Self/Suicidal Ideati: Passive, Plan Danger to Others: None Consciousness: Alert Orientation: Person, Place, Date, Situation Memory: Grossly Intact Estimate Intellectual Function: Above Average Basis for IQ estimate: Awareness current events, Word use/vocabulary Attention/Concentration & Cogn: Grossly Intact Insight: Good Judgement: Limited Result Diagram: 01/16/17201901/16/172019 Mental Health Plan The patient is a 36-year-old, white female, who has been struggling with symptoms of complex posttraumatic stress disorder since the trauma of losing her cousins at age 17. 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 Lately she has had stressors with her drinking increased amounts of alcohol and both being sick over the past year. This has caused a significant financial stress which is seemed to set off a series of major depressive symptoms including poor sleep, interest, guilt, energy, concentration, appetite and culminating in suicidal ideation. She came to the emergency room seeking safety and treatment. Today she is reporting a decrease in intensity of suicidal ideation and an improved sense of Hope and meaning in her life. She appears to be making significant improvement. [place] AXIS I: 1. Major depressive disorder. 2. Complex posttraumatic stress disorder. AXIS II: None. AXIS III: 1. Thyroidectomy with thyroid replacement in July 2016. 2. Hypertension. AXIS IV: Moderate. AXIS V: Current Global Assessment of Functioning equal to 35. Treatments Patient is being provided with a high degree of safety through our unit structure and active adult engagement provided by our mental health professionals, mental health technicians, psychiatric nurses and myself. We are focusing on developing improved coping skills and identifying stressors that may have led to current episode. We will attempt to: * Integrate into therapeutic groups, milieu and individual therapy. * Maintain in a closely monitored and structured unit * Provide low-stimulation environment * Obtain collateral data to assist in treatment planning * Assess degree of lability of affect and impulse control * Complete safety plan * Decrease frequency of relapse and need for re-hospitalization * Denies thoughts of harm to self and/or others * Establish a consistent sleep pattern * Medication effective in stabilization of mood and/or thought process * Reduce the risk of imminent harm to self by providing a safe environment * Tolerates medication without side effects Patient will be on the following psychiatric medications: Cymbalta 30 mg daily Klonopin 0.5 twice a day and 1 mg h.s. Patient's legal status Voluntary Anticipated number of hospital days to achieve above goals: 3 Disposition: Home Luis Mcnamara MD Jan 18, 2017 15:25
--- NOTE | 2017-01-18 17:54 | NUR ---
[facility] Day Shift Pt maintained behavioral control throughout the shift. Pt affect appears mostly flat, brighter when active on the shift or engaged with peers. Pt spends most of the shift resting in her room, briefly remaining in the dining room following meals. Pt is appropriate with staff and peers when active on the unit. Pt declined to participate in group activities throughout the shift. Pt attended all meals and ate approx 100% of all meals.
--- NOTE | 2017-01-18 18:29 | NUR ---
NURS Note [id number] Mood: Endorses depression 610; anxiety 9.5/10 (PRN Vistaril 50 mg at 0900, anxiety 6/10 at 1100) Affect: Well-modulated. Behavior: Pleasant and appropriate. Pt resting in room much of AM. Visited with family and friends during visiting hours. Thought Content/Process: "I really want to hurt myself. It's all I can think about right now. I just wish I could crawl out of my skin." Endorses thoughts of self-harm with plan to hit her leg with a hammer, contracted for safety while on unit. Denies SI, HI. Denies AH, VH. PRN/NURS Notes: PRN Vistaril 50 mg at 0900.
[2017-01-18] MEDS: LORazepam 1 mg Tablet PO PRN (21:11)
--- NOTE | 2017-01-19 04:50 | NUR ---
nurse prog note: pt. slept well through the night.
[2017-01-19] MEDS: DULoxetine 30 mg DR Capsule PO SCH (07:50)
[2017-01-19] MEDS: MeTOProlol XL 25 mg ER24 Tablet PO SCH (07:50)
[2017-01-19] MEDS: Pantoprazole 20 mg ER24 Tablet PO SCH ×2 (07:50→20:38)
[2017-01-19 11:09] VITALS: BP 130/78; PULSE 87; RESP 18
--- NOTE | 2017-01-19 13:15 | PCM.PNPSY ---
Subjective Date of Service Jan 19, 2017 Subjective I spent 30 minutes both reviewing treatment plan with our clinical team, interviewing the patient and providing supportive/educational psychotherapy. I spent more than 50% of the time counseling the patient. I reviewed the treatment plan with the patient and discussed options available including the potential risks, benefits and side effects. She reviewed the different conflicts that she is having in her life. We discussed different strategies to deal with these conflicts and talked about a safety plan should suicidal ideation recurs outpatient.. Rani reports a continued improvement in mood stability. Staff reports that she has been participating well in unit activities. She slept 9 hours . She continues to report a marked dysphoria and a strong urge to self-harm. The intensity of her suicidal ideation continues to decrease. She denies medication side effects. She was able to identify her medications and what they were used to treat. Current Medications Current Medications Atenolol 25 mg DAILY PO Last administered on 01/18/17 07:49; Admin Dose 25 MG; Start 01/18/17 at 08:30; Stop 01/18/17 at 15:27; Status DC Clonazepam 1 mg HS PO Last administered on 01/18/17 21:11; Admin Dose 1 MG; Start 01/17/17 at 21:00 Duloxetine HCl 30 mg DAILY PO Last administered on 01/19/17 07:50; Admin Dose 30 MG; Start 01/18/17 at 07:00 Levothyroxine Sodium 200 mcg DAILYAC PO Last administered on 01/19/17 07:49; Admin Dose 200 MCG; Start 01/18/17 at 07:30 Metoprolol Succinate 25 mg DAILY PO Last administered on 01/19/17 07:50; Admin Dose 25 MG; Start 01/18/17 at 08:30 Oxybutynin Chloride 5 mg BID PO Last administered on 01/19/17 07:50; Admin Dose 5 MG; Start 01/17/17 at 20:30 Pantoprazole 20 mg BID PO Last administered on 01/19/17 07:50; Admin Dose 20 MG ; Start 01/17/17 at 20:30 Mental Status Exam Vital Signs Vital Signs Date Time Temp Pulse Resp B/P Pulse Ox O2 Delivery O2 Flow Rate FiO2 01/19/17 11:09 37.1 87 18 130/78 Appearance: Neat/well groomed Attitude: Pleasant, Cooperative Behavior: No unusual behavior Affect: Well Modulated/Appropriate Mood: Dysthymic Thought Process/Associations: Logical/Sequential, Goal Directed Speech Production: Normal Speech Rate: Normal Speech Articulation: Normal Thought Content: Negativistic Danger to Self/Suicidal Ideati: Passive, Plan Danger to Others: None Consciousness: Alert Orientation: Person, Place, Date, Situation Memory: Grossly Intact Estimate Intellectual Function: Above Average Basis for IQ estimate: Awareness current events, Word use/vocabulary Attention/Concentration & Cogn: Grossly Intact Insight: Good Judgement: Limited Result Diagram: 01/16/17201901/16/172019 Mental Health Plan The patient is a 36-year-old, white female, who has been struggling with symptoms of complex posttraumatic stress disorder since the trauma of losing her cousins at age 17. 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 Lately she has had stressors with her drinking increased amounts of alcohol and both being sick over the past year. This has caused a significant financial stress which is seemed to set off a series of major depressive symptoms including poor sleep, interest, guilt, energy, concentration, appetite and culminating in suicidal ideation. She came to the emergency room seeking safety and treatment. Today she is reporting an improved sense of Hope and meaning in her life. She appears less dysphoric and is beginning to future plan. She no longer sees Suicide as the only option [employer] AXIS I: 1. Major depressive disorder. 2. Complex posttraumatic stress disorder. AXIS II: None. AXIS III: 1. Thyroidectomy with thyroid replacement in July 2016. 2. Hypertension. AXIS IV: Moderate. AXIS V: Current Global Assessment of Functioning equal to 40. Treatments Patient is being provided with a high degree of safety through our unit structure and active adult engagement provided by our mental health professionals, mental health technicians, psychiatric nurses and myself. We are focusing on developing improved coping skills and identifying stressors that may have led to current episode. We will attempt to: * Integrate into therapeutic groups, milieu and individual therapy. * Maintain in a closely monitored and structured unit * Provide low-stimulation environment * Obtain collateral data to assist in treatment planning * Assess degree of lability of affect and impulse control * Complete safety plan * Decrease frequency of relapse and need for re-hospitalization * Denies thoughts of harm to self and/or others * Establish a consistent sleep pattern * Medication effective in stabilization of mood and/or thought process * Reduce the risk of imminent harm to self by providing a safe environment * Tolerates medication without side effects Patient will be on the following psychiatric medications: Cymbalta 30 mg daily Klonopin 0.5 twice a day and 1 mg h.s. Patient's legal status Voluntary Anticipated number of additional hospital days to achieve above goals: 1 Disposition: Home Luis Mcnamara MD Jan 19, 2017 13:15
--- NOTE | 2017-01-19 13:31 | NUR ---
Obs Dayshift Pt is participating and engaged in groups, stating that she is hopeful and goal was to work on lessening the self harm thoughts today. Pt is engaging well with some peers, spending more time out of her room. Pt is polite, smiling and appropriate. Good ADL's, Good meals
--- NOTE | 2017-01-19 14:32 | NUR ---
NURS Note [id number] Mood: "I feel anxious about going home tomorrow, I just worry that Ill fall back into things as usual." Endorses depression and anxiety. Affect: Well-modulated. Thought Process/Content: "I feel grateful to have such a strong support network." Linear, logical. Continues to endorse thoughts of self-harm. Behavior: Pleasant, appropriate. Participated in groups. Interacting appropriately with peers. PRN/NURS Notes: Dr. Mcnamara ordered Flexeril 10 mg for muscle spasms. Addendum: 01/19/17 at 1503 by JESSICA GUAMAN RN Pt was able to contract for safety while on the unit.
[2017-01-19] MEDS: LORazepam 1 mg Tablet PO PRN (14:38)
--- NOTE | 2017-01-19 15:42 | NUR ---
game preserve manager/Counselor S:"I'm very anxious about going home tomorrow." A: Patient did not express any SI or HI, no AVH, and rated her depression and anxiety at a 7. She did express feelings of self harm but not in terms of SI. Patient slept for 8.5 hours. O: Patient was very pleasant and cooperative. She would like to be given some tools and coping mechanisms for her self harm tendencies. Patient did attend group on "Past and Future achievements" and "Hands Past and Future" activity. Patient actively participated and was able to list achievements from the past as well as establish some future achievement goals. She stated that she would like to be connected with outpatient Mental Health, and was reassured that it was part of the plans for discharge. P: Follow care plan and coordinate with outpatient providers.
--- NOTE | 2017-01-20 05:10 | NUR ---
Nursing Shift Stamping Operator 11pm to 7am Pt asleep at start of shift and remained asleep for the duration of the night. Pt monitored q 15 minutes for safety location and accountability
[2017-01-20] MEDS: Pantoprazole 20 mg ER24 Tablet PO SCH (08:16)
[2017-01-20] MEDS: MeTOProlol XL 25 mg ER24 Tablet PO SCH (08:17)
[2017-01-20] MEDS: DULoxetine 30 mg DR Capsule PO SCH (08:17)
[2017-01-20] MEDS: LORazepam 1 mg Tablet PO PRN (08:19)
[2017-01-20] MEDS ORDERED: KLO1T PO (11:37)
[2017-01-20] MEDS ORDERED: KLO5T PO (11:37)
[2017-01-20] MEDS ORDERED: [UNRECOGNIZED DRUG - CODE] PO (11:37)
[2017-01-20] MEDS ORDERED: LEVO100T6 PO (11:37)
[2017-01-20] MEDS ORDERED: DULO30CA PO (11:37)
[2017-01-20] MEDS ORDERED: BUSP5TAB3 PO (11:37)
--- NOTE | 2017-01-20 11:39 | PCM.DIMED ---
Discharge Instructions Date of Service Jan 20, 2017 Dates of Hospitalization Jan 17, 2017 at 00:12 Discharge Diagnosis Discharge Diagnosis AXIS I: 1. Major depressive disorder. 2. Complex posttraumatic stress disorder. AXIS II: None. AXIS III: 1. Thyroidectomy with thyroid replacement in July 2016. 2. Hypertension. AXIS IV: Moderate. AXIS V: Current Global Assessment of Functioning equal to 45 Medication Instructions Additional med instructions I Strongly encouraged patient to follow up with outpatient care: 1-Recommended patient takes medication as prescribed and not alter this unless under the direct care of a provider. 2-Recommend client refrain from recreational drugs and alcohol while taking psychiatric medications. 3-Recommend patient attempt to find a therapist or group to deal with impulse control and interpersonal relationship conflicts Diet Discharge Diet: No restrictions Activity Discharge Activity: No restrictions Call your provider Call your provider for: Fever or Chills Patient Instructions Patient Instructions Clinic to follow[facility]up with [facility] 01/26/2017 for an initial intake. Client follow-up with primary care provider Dr. infante 01/22/2017 for ongoing medication management and care Follow-up with PCP in: 2 weeks Luis Mcnamara MD Jan 20, 2017 11:39
--- NOTE | 2017-01-20 12:25 | NUR ---
Discharge Patient ambulated from unit accompanied by family. Patient smiling and cheerful at discharge. Patient denies current anxiety, depression, hallucinations, suicidal ideation or thoughts of self harm. Patient reports she is feeling more optimistic following her hospitalization and is looking forward to beginning her counseling at [facility]. Discharge instruction/medications reviewed with patient prior to discharge. All questions addressed. Patient belongings, discharge instructions and prescriptions in hand. Prescriptions faxed to [facility] in [facility].
[2017-01-20 12:40] VITALS: BP 122/81; PULSE 80; RESP 18
--- NOTE | 2017-01-20 15:24 | NUR ---
Jacquard Fixer/Counselor S:"I really appreciate everything everyone has done." O: Patient denies any SI or HI, no AVH and rated her anxiety at a 7 and depression at a 5. Levels of anxiety due to discharge. A: Patient left the unit smiling and happy. She expressed her gratitude for the help she received and was picked up by family members. She was provided with discharge instructions, safety plan, and follow up appts with her PCP and [facility]. P: Provide all necessary and essential discharge paperwork.
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
== END 2017-01-20 12:25 | disposition home or self-care (01) | DRG 885 ==
LOC: SED 17:42 → MHC 01-17 00:12
PROVIDERS: ADMIT Psychiatry & Neurology Psychiatry; ATTEND Psychiatry & Neurology Psychiatry
DX: F32.89 Other specified depressive episodes (principal); R45.851 Suicidal ideations; F43.10 Post-traumatic stress disorder, unspecified; F17.210 Nicotine dependence, cigarettes, uncomplicated; E89.0 Postprocedural hypothyroidism

== ENCOUNTER 2017-02-05 16:48 | Emergency (ER) | payer OTHER ==
[~2017-02-05] VITALS: Ht 165.1 cm; Wt 132.7 kg
[~2017-02-05 16:48] MED LIST changes: -ATEN25TA PO; +BUSP5TAB3 PO; -CITA20TA11 PO; +DULO30CA PO; +KLO1T PO; +KLO5T PO; +LEVO100T6 PO; -LEVO150T5 PO; -LORA1TAB PO; +METO25TA99 PO; -OXYC5SOL11 PO; +PANT40TA3 PO; +[UNRECOGNIZED DRUG - CODE] PO
[2017-02-05 16:55] VITALS: BP 159/102; PULSE 91; RESP 20; O2SAT 97
--- NOTE | 2017-02-05 17:22 | ED.REPORT ---
HPI-Overdose/Alcohol Toxicity Date of Service Feb 05, 2017 ED Provider: Kin Power MD Pt is a 36 year old female with a hx of complex PTSD, anxiety and depression presenting to the ED after overdosing on Lorazepam just prior to arrival. 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 She thinks she took around 10 mg Lorazepam. Denies any alcohol use today. She states that she feels safe at home, she just doesn't feel loved. Pt was recently hospitalized at [facility] in the mental health department for 5 days. She called her mother, who is a nurse, what she had done, and was advised to come into the ER. She states that she told her that she doesn't want to be anymore, and that he is an alcoholic and just decided yesterday to go to AA. Denies any recent sickness or any other symptoms at this time. She is unsure if this was an attempt to end her life, she did not plan to. She states she thinks she just wanted to go to sleep. Nursing Notes Stated Complaint: POSSIBLE LERAZEPAM OVERDOSE Chief Complaint: Substance Abuse Nursing Notes Reviewed: Yes Allergies: Coded Allergies: aripiprazole (Verified Adverse Reaction, Severe, DRY MOUTH, 02/05/17) ciprofloxacin HCl (Verified Adverse Reaction, Severe, GENERALIZED PAIN, 02/05/17) hydromorphone (Verified Adverse Reaction, Severe, ITCHING, 02/05/17) Scheduled Buspirone (Buspirone) 5 Mg Tablet 5 MG PO BID Clonazepam (Clonazepam) 1 Mg Tablet 1 MG PO HS Clonazepam (Clonazepam) 0.5 Mg Tablet 0.5 MG PO BID Duloxetine (Cymbalta) 30 Mg Capsule.dr 30 MG PO DAILY Duloxetine (Duloxetine) 30 Mg Capsule.dr 30 MG PO DAILY Levothyroxine (Levothyroxine) 200 Mcg Tablet 200 MCG PO DAILY Metoprolol Succinate ER (Metoprolol Succinate ER) 25 Mg Tab.er.24h 25 MG PO DAILY Olanzapine (Olanzapine) 2.5 Mg Tablet 2.5 MG PO DAILY Oxcarbazepine (Trileptal) 150 Mg Tablet 150 MG PO BID Oxcarbazepine (Oxcarbazepine) 150 Mg Tablet 150 MG PO BID Oxybutynin Chloride (Oxybutynin Chloride) 5 Mg Tablet 5 MG PO BID Pantoprazole DR (Pantoprazole DR) 40 Mg Tablet.dr 40 MG PO DAILY Scheduled PRN Ibuprofen (Ibuprofen) 600 Mg Tablet 600 MG PO QID PRN PRN For Pain General Time Seen by Provider: 17:22 Chief Complaint Drug overdose Hx Obtained From: Patient Arrived By: Walk-in Onset Occurred: Just prior to arrival Symptom Duration: Since onset Progression Since Onset: Constant Severity: Current: No pain currently Severity: Maximum: No pain Recent Healthcare: No recent doctor visit, Recent hospitalization Similar Sx Previous: No Past Medical History Past Medical History Notes: PCP: Ascencion Mcnamara Past Medical History Cholelithiasis TMJ treated with braces GERD Nephrolithiasis Frequent UTIs Multinodular goiter Anxiety Bipolar disorder type 2 Depression Self-harm Suicidal ideation On thyroid replacement Left bundle branch block Past Surgical History Bone spur removal in shoulder Total thyroidectomy Reports: , Cholecystectomy Reports: Tubal ligation Family History Reports: Coronary artery disease Smoking History Current Every Day Smoker Social History Alcohol Use: Denies alcohol use Other Social History: Good social support, , Lives with children, Local resident Ambulatory Status Independent Review of Systems Constitutional: Denies: Weakness - generalized Respiratory: Denies: Shortness of breath Cardiovascular: Denies: Chest pain GI: Denies: Abdominal pain Psychiatric: Reports: Depression, Stress, Suicidal ideation Complete sys rev & neg: except as marked. Physical Exam Initial Vital Signs Vital Signs (First) Date Time Temp Pulse Resp B/P Pulse Ox O2 Delivery O2 Flow Rate FiO2 02/05/17 16:55 36.6 91 20 159/102 97 Room Air Initial VS: Reviewed Head / Eyes: Atraumatic, Normocephalic, PERRL ENT: Mucous membranes moist, Conjunctiva normal, No scleral icterus Extremities: Vascular intact, Neuro intact, No swelling, No tenderness Skin: Warm, Dry, No cyanosis General/Constitutional: Awake, Alert Respiratory / Chest: Atraumatic, Breath sounds NL, Breath sounds = bilat, No respiratory distress, No rales, No rhonchi, No wheezing Cardiovascular: Heart rate NL, Regular rhythm, Heart sounds NL, Cap refill not delayed, Peripheral circulation NL Abdomen: Atraumatic, Soft, Non-tender, No guarding, No rebound Neurologic: Oriented X3, Speech NL, No motor deficits, No sensory deficits Psychiatric: Not suicidal (Denies currently), Not homicidal, No hallucinations , Judgment/insight NL Tearful Interpretation & Diagnostics ECG Interpretation ECG Interpretation: LBBB. Time: 17:51 Interpreted by: ED physician Normal ECG Interpretation: Normal rate (82), Normal sinus rhythm Re-Eval/Medical Decision Re-Evaluation/Progress : Time of Eval: 17:36 Patient Status: Condition improved Re-Evaluation/Progress Note: Discussed transfer of care to Dr. Herrera. Counseled Regarding: Diagnosis, Lab results, Need for follow-up, When/why to return to ED Discharge & Departure Impression: Primary Impression: Suicidal ideation Additional Impression: Benzodiazepine overdose Disposition: Home Discharge Condition All VS Reviewed: Yes Condition: Improved Referrals: Ascencion Mcnamara MD (PCP) Care Transferred to: Care transferred to Dr. Herrera Care Transferred at: 18:00 Scribe Attestation Portions of this note were transcribed by Kelly Scott. I, Dr. Power personally performed the history, physical exam and medical decision-making; I reviewed and confirmed the accuracy of the information in the transcribed note. Signed by: Caden Menendez, 02/05/17 at 1800. copies to: Ascencion Mcnamara MD, Kirk H MD Feb 05, 2017 17:22 KELLY SCOTT Feb 05, 2017 17:28
[2017-02-05 17:26] VITALS: BP 144/85; PULSE 90; RESP 17; O2SAT 96
[2017-02-05] MEDS ORDERED: OXCA150T PO (17:38)
[2017-02-05] MEDS ORDERED: LEVO200T6 PO (17:38)
[2017-02-05] MEDS ORDERED: DULO30CA50 PO (17:38)
[2017-02-05] MEDS ORDERED: OLAN2.5T20 PO (17:38)
[2017-02-05 18:12] LABS: Mean Corpuscular Hemoglobin 31.7 pg (27.0-35.0)
[2017-02-05 21:08] VITALS: BP 107/69; PULSE 84; RESP 16
== END 2017-02-05 21:09 | disposition home or self-care (01) ==
LOC: SED 16:48
DX: T42.4X2A Poisoning by benzodiazepines, intentional self-harm, initial encounter (principal); Y93.89 Activity, other specified; Y92.9 Unspecified place or not applicable; Y99.8 Other external cause status; R45.851 Suicidal ideations; F31.81 Bipolar II disorder; K21.9 Gastro-esophageal reflux disease without esophagitis; F43.10 Post-traumatic stress disorder, unspecified; F41.9 Anxiety disorder, unspecified; F17.200 Nicotine dependence, unspecified, uncomplicated; Z91.5 Personal history of self-harm; Z87.440 Personal history of urinary (tract) infections; Z88.1 Allergy status to other antibiotic agents; Z88.5 Allergy status to narcotic agent; Z88.8 Allergy status to other drugs, medicaments and biological substances
CPT/HCPCS: 36415; 80053; 81025; 82075; 85027; 93005; 99284; G0480